=== PATIENT | female | born 1990 | race African-American/Black ===

== ENCOUNTER 2018-08-04 10:54 | Emergency (ER) | payer OTHER ==
[2018-08-04] MEDS ORDERED: Lidocaine 1% 20 ML MDV ONE (11:10)
[2018-08-04] MEDS ORDERED: Bacitracin Zinc 1 Packet ONE (11:29)
[2018-08-04] MEDS ORDERED: Adacel (T-DAP) 0.5 ML VIAL ONE (11:29)
== END 2018-08-04 11:50 | disposition home or self-care (01) ==
LOC: SCSER 10:54
DX: L02.31 Cutaneous abscess of buttock (principal); F17.210 Nicotine dependence, cigarettes, uncomplicated
CPT/HCPCS: 10060; 87070; 87077; 87186; 87205; 90471; 90715; J2001

== ENCOUNTER 2019-06-16 12:17 | Emergency (ER) | payer OTHER | END 2019-06-16 13:20 | disposition home or self-care (01) | LOC: SCSER 12:17 | DX: L02.412 Cutaneous abscess of left axilla (principal); F17.210 Nicotine dependence, cigarettes, uncomplicated; Z71.6 Tobacco abuse counseling | CPT/HCPCS: 10060; 99406 ==

== ENCOUNTER 2019-06-21 14:49 | Emergency (ER) | payer OTHER | END 2019-06-21 15:22 | disposition home or self-care (01) | LOC: SCSER 14:49 | DX: L73.2 Hidradenitis suppurativa (principal); Z48.817 Encounter for surgical aftercare following surgery on the skin and subcutaneous tissue; F17.210 Nicotine dependence, cigarettes, uncomplicated; Z79.891 Long term (current) use of opiate analgesic | CPT/HCPCS: 99282 ==